=== PATIENT | male | born 1955 | race Caucasian/White ===

== ENCOUNTER 2022-08-08 23:11 | Day surgery (SDC) | payer BC, OTHER ==
[2022-08-08 23:50] VITALS: BMI 28.7
[2022-08-09] MEDS ORDERED: SODIUM CHLORIDE 1,000 ML IV STA ×2 (00:04→02:00)
[2022-08-09] MEDS ORDERED: ONDANSETRON 4 MG/2 ML VIAL IVPUSH ONE (00:04)
[2022-08-09] MEDS ORDERED: ONDANSETRON 4 MG/2 ML VIAL ONE (00:30)
[2022-08-09] MEDS ORDERED: ACETAMINOPHEN INJECTION 100 ML IVPB ONE (01:00)
[2022-08-09] MEDS ORDERED: ACETAMINOPHEN 1000 MG/100 ML BAG IVPB ONE (01:24)
[2022-08-09 01:31] LABS: HEMATOCRIT 41.8 % (35.4-49); HEMOGLOBIN 14.2 GM/dL (11.7-16.9); MCH 30.4 pg (25.7-33.7); MEAN CELL VOLUME 89.5 fl (80-96); MEAN PLT VOLUME 8.5 fl (7.5-11.1); PLATELET COUNT 212 10^3/uL (134-434); RBC 4.67 M/mm3 (4.00-5.60); RDW 12.8 % (11.9-15.9); WHITE BLOOD COUNT 17.1 K/mm3 (4.0-10.0)
[2022-08-09] MEDS ORDERED: KETOROLAC TROMETHAMINE 30 MG/1 ML VIAL IVPUSH ONE (01:47)
[2022-08-09] MEDS ORDERED: KETOROLAC TROMETHAMINE 30 MG/1 ML VIAL ONE (01:50)
[2022-08-09 01:52] LABS: ALBUMIN 3.9 g/dl (3.4-5.0)
[2022-08-09 01:54] LABS: CREATININE 1.4 mg/dL (0.55-1.3)
[2022-08-09 01:56] LABS: BILIRUBIN,TOTAL 0.5 mg/dL (0.2-1)
[2022-08-09 02:05] LABS: BLOOD UREA NITROGEN 19.6 mg/dL (7-18); TOT PROT 6.8 g/dl (6.4-8.2)
[2022-08-09 02:44] LABS: ANISOCYTOSIS 1+; MACROCYTOSIS 0; OVALOCYTE 1+
[2022-08-09] MEDS ORDERED: CEFTRIAXONE 1 GM in DEXTROSE 5%-WATER - 100 ML IVPB ONE (02:58)
[2022-08-09] MEDS ORDERED: cefTRIAXone SODIUM 1 GM VIAL ONE (03:08)
[2022-08-09 03:38] LABS: EPI CELLS 1 /uL (0-25.1); HYALINE CASTS 0 /uL (0-3.1); PH,URINE 5.5 (5.0-8.0); URINE APPEARANCE CLEAR; URINE BACTERIA 1 /uL (0-1359); URINE BILIRUBIN NEGATIVE (NEGATIVE); URINE COLOR YELLOW; URINE GLUCOSE (UA) NEGATIVE (NEGATIVE); URINE KETONE NEGATIVE (NEGATIVE); URINE LEUK ESTERASE NEGATIVE (NEGATIVE); URINE NITRITE NEGATIVE (NEGATIVE); URINE PROTEIN NEGATIVE (NEGATIVE); URINE RBC 18 /uL (0-23.9); URINE UROBILINOGEN 0.2 mg/dL (0.2-1.0); URINE WBC 2 /uL (0-25.8)
[2022-08-09] MEDS ORDERED: amLODIPine BESYLATE 10 MG TABLET (FP) PO SCH (10:00)
[2022-08-09] MEDS ORDERED: SODIUM CHLORIDE 1,000 ML IV SCH ×3 (10:30→12:45)
[2022-08-09] MEDS ORDERED: IBUPROFEN 800 MG/8 ML IJ IVPB PRN ×3 (10:30→12:43)
[2022-08-09] MEDS ORDERED: ACETAMINOPHEN 1000 MG/100 ML BAG IVPB PRN ×3 (10:30→12:43)
[2022-08-09] MEDS ORDERED: MIDAZOLAM HCL 2 MG/2 ML SINGLE DOSE VIAL ONE (11:32)
[2022-08-09] MEDS ORDERED: FENTANYL CITRATE/PF 50 MCG/ML VIAL ONE (11:32)
[2022-08-09] MEDS ORDERED: SUCCINYLCHOLINE CHLORIDE 200 MG/10 ML SYRINGE ONE ×2 (11:32→12:38)
[2022-08-09] MEDS ORDERED: PROPOFOL 20 ML ONE (11:32)
[2022-08-09] MEDS ORDERED: GENTAMICIN SO4 80 MG/2 ML VIAL ONE (11:48)
[2022-08-09] MEDS ORDERED: ceFAZolin SODIUM 1 GM VIAL ONE ×2 (11:51)
[2022-08-09] MEDS ORDERED: GENTAMICIN 80MG PREMIX BAG IVPB ONE (11:59)
[2022-08-09] MEDS ORDERED: ceFAZolin SODIUM 1 GM VIAL IVPB ONE (11:59)
[2022-08-09] MEDS ORDERED: ONDANSETRON 4 MG/2 ML VIAL IVPUSH PRN (12:43)
[2022-08-09] MEDS ORDERED: ACETAMINOPHEN 325 MG TABLET (FP) PO PRN (12:43)
[2022-08-09] MEDS ORDERED: oxyCODONE HCL 5 MG TABLET PO PRN ×2 (12:43)
[2022-08-09] MEDS ORDERED: LACTATED RINGERS SOLUTION 1,000 ML IV SCH (12:45)
[2022-08-09 13:15] VITALS: RESP 18
[2022-08-09 14:39] VITALS: BP 159/78; PULSE 55; TEMP 98.1
[2022-08-10] MEDS ORDERED: amLODIPine BESYLATE 10 MG TABLET (FP) PO SCH ×2 (10:00)
[2022-08-10] MEDS ORDERED: CEFTRIAXONE 1 GM in DEXTROSE 5%-WATER - 50 ML IVPB SCH (10:00)
== END 2022-08-09 14:42 | disposition home or self-care (01) ==
LOC: JER 23:11 → UNDOADMIN 23:12 → JERBED 23:12 → JER 08-09 11:06 → JASUSAT 08-09 12:47 → J5S 08-09 13:40 → JASUSAT 08-09 14:42
PROVIDERS: ATTEND Urology
PROC: 0T778DZ Dilation of Left Ureter with Intraluminal Device, Via Natural or Artificial Opening Endoscopic (ICD-10-PCS; 2022-08-09)
PROC: 0T9780Z Drainage of Left Ureter with Drainage Device, Via Natural or Artificial Opening Endoscopic (ICD-10-PCS; principal; 2022-08-09 11:00)
DX: N13.2 Hydronephrosis with renal and ureteral calculous obstruction (principal)
CPT/HCPCS: 0241U-QW; 36415; 71045-TC-FY; 74176-TC; 80053; 81003; 83690; 85025; 87086; 93005; 94760; 99285-25; C1769; C2617

== ENCOUNTER 2022-08-25 04:02 | Day surgery (SDC) | payer OTHER ==
[2022-08-21 12:58] VITALS: BMI 27.8
[2022-08-25] MEDS ORDERED: MIDAZOLAM HCL 2 MG/2 ML SINGLE DOSE VIAL ONE (08:29)
[2022-08-25] MEDS ORDERED: FENTANYL CITRATE/PF 50 MCG/ML VIAL ONE (08:29)
[2022-08-25] MEDS ORDERED: ONDANSETRON 4 MG/2 ML VIAL ONE (08:53)
[2022-08-25 09:42] VITALS: RESP 18; TEMP 97.8
[2022-08-25 11:21] VITALS: BP 116/66; PULSE 58
== END 2022-08-25 11:02 | disposition home or self-care (01) ==
LOC: JASU-SURG 04:02
PROVIDERS: ATTEND Urology
PROC: 0TF4XZZ Fragmentation in Left Kidney Pelvis, External Approach (ICD-10-PCS; principal; 2022-08-25 08:30)
DX: N20.0 Calculus of kidney (principal); I10 Essential (primary) hypertension; E11.9 Type 2 diabetes mellitus without complications; Z79.84 Long term (current) use of oral hypoglycemic drugs
CPT/HCPCS: 82962